=== PATIENT | male | born 1985 | race Caucasian/White ===

== ENCOUNTER 2023-12-13 08:23 | Outpatient (CLI) | payer OTHER, SELFPAY ==
--- NOTE | 2023-12-13 08:34 | MR_ITS ---
FINAL REPORT TECHNIQUE: Multiplanar MR without contrast CLINICAL HISTORY: RADICULPATHY SHOULDER PAIN COMPARISON: None FINDINGS: Marrow signal: Unremarkable Glenohumeral joint: No significant degenerative changes. AC joint: There is minimal arthropathy with mild impingement on the supraspinatus muscle. There is a trace amount of fluid seen in the subacromial bursa presumably related to bursitis. Rotator cuff: Tendinosis is present without a discrete tear. Labrum: Normal morphology without tear Biceps tendon: Intra-articular long head biceps tendon intact. IMPRESSION: No rotator cuff or labral tear is present. Trace fluid in the subacromial bursa with minimal arthropathy and mild impingement of the supraspinatus muscle. Reviewed, Interpreted and Dictated by Taran Naik MD Transcribed by Krystin Funez Authenticated and [facility]
== END 2023-12-13 23:59 ==
LOC: RAD 08:28
PROVIDERS: PCP Family Medicine; Visit Provider Family Medicine
DX: M25.511 Pain in right shoulder (principal); M54.13 Radiculopathy, cervicothoracic region
CPT/HCPCS: 73221